=== PATIENT | female | born 1980 | race Caucasian/White ===

== ENCOUNTER 2017-04-11 06:29 | Emergency (ER) | payer SELFPAY ==
[~2017-04-11] VITALS: Wt 64.0 kg
[2017-04-11] MEDS ORDERED: ACETAMINOPHEN 500 MG TAB PO STA (06:50)
--- NOTE | 2017-04-11 06:53 | ERD ---
ER Documentation Chief Complaint Chief Complaint VAG BLEED X 2 DAYS 8 WEEKS PREG HPI This is a 36-year-old female who presents the emergency department today complaining of vaginal bleeding for the past 2 days. Patient states that couple of days ago she was spotting and went to [facility] yesterday and was told that the baby did not have a heartbeat. States that she is here today because she has had increased vaginal bleeding. She has some low back pain. States she has not taken any medication for the pain. Denies any dysuria , fevers or chills. ROS All systems reviewed and are negative except as per history of present illness. Medications Home Meds Active Scripts Acetaminophen* (Tylophen*) 500 Mg Capsule, 1 CAP PO Q6H Y for PAIN AND OR ELEVATED TEMP, #30 CAP Prov:JONEL MOSELEY PA-C 04/11/17 PMhx/Soc Medical and Surgical Hx: pt denies Medical Hx, pt denies Surgical Hx Hx Alcohol Use: No Hx Substance Use: No Hx Tobacco Use: No Physical Exam Vitals Vital Signs Date Time Temp Pulse Resp B/P Pulse Ox O2 Delivery O2 Flow Rate FiO2 04/11/17 06:33 98.0 78 18 158/86 99 Physical Exam Const: NAD Head: Atraumatic Eyes: Normal Conjunctiva ENT: Normal External Ears, Nose and Mouth. Neck: Full range of motion..~ No meningismus. Resp: Clear to auscultation bilaterally Cardio: Regular rate and rhythm, no murmurs Abd: Soft, diffuse pelvic tenderness non distended. Normal bowel sounds. No tenderness at McBurney's. Skin: No petechiae or rashes Back: No midline or flank tenderness Ext: No cyanosis, or edema Neur: Awake and alert Psych: Normal Mood and Affect Result Diagram: 04/11/17 0705 Results 24 hrs Laboratory Tests Test 04/11/17 07:05 04/11/17 07:18 White Blood Count 7.610^3/ul Red Blood Count 4.4910^6/ul Hemoglobin 14.0g/dl Hematocrit 41.7% Mean Corpuscular Volume 92.9fl Mean Corpuscular Hemoglobin 31.2pg Mean Corpuscular Hemoglobin Concent 33.6g/dl Red Cell Distribution Width 13.2% Platelet Count 79717^3/UL Mean Platelet Volume 9.4fl Neutrophils % 68.1% Lymphocytes % 23.4% Monocytes % 6.0% Eosinophils % 1.8% Basophils % 0.4% Nucleated Red Blood Cells % 0.0/100WBC Neutrophils # 5.210^3/ul Lymphocytes # 1.810^3/ul Monocytes # 0.510^3/ul Eosinophils # 0.110^3/ul Basophils # 0.010^3/ul Nucleated Red Blood Cells # 0.010^3/ul Beta HCG, Quantitative 61577.0mIU/ml Urine Color RED Urine Clarity CLEAR Urine pH 7.0 Urine Specific [place] 1.003 Urine Ketones NEGATIVEmg/dL Urine Nitrite NEGATIVEmg/dL Urine Bilirubin NEGATIVEmg/dL Urine Urobilinogen NEGATIVEmg/dL Urine Leukocyte Esterase NEGATIVELeu/ul Urine Microscopic RBC > 182/HPF Urine Microscopic WBC 8/HPF Urine Bacteria FEW/HPF Urine Hemoglobin 3+mg/dL Urine Glucose NEGATIVEmg/dL Urine Total Protein 2+mg/dl Current Medications Medications (Trade) Dose Ordered Sig/Melina Route PRN Reason Start Time Stop Time Status Last Admin Dose Admin Acetaminophen (Tylenol Tab) 500 mg ONCE STAT PO 04/11/17 06:50 04/11/17 06:52 DC 04/11/17 07:11 Methylergonovine Maleate (Methergine) 0.2 mg ONCE ONCE IM 04/11/17 10:30 04/11/17 10:31 DC DIAGNOSTIC IMAGING REPORT Patient: DERIC ALARCON : 1980 Age: 36 Sex: F MR #: [id number] DOS: 04/11/17 0650 Ordering MD: JONEL MOSELEY PA-C Location: E Room/Bed: PROCEDURE: US Pelvis CLINICAL INDICATION: Vaginal bleeding. TECHNIQUE: Transabdominal and transvaginal sonographic evaluation of the pelvis was performed. COMPARISON: None available. FINDINGS: Uterus is retroverted and normal in size and echotexture measuring 8.1 x 4.8 x 6.5 cm. There is no evidence of an intrauterine gestational sac. The endometrial canal complex is prominent and slightly heterogeneous at 23.4 mm in AP dimension. Ovaries appear normal bilaterally. The right ovary measures 1.9 x 1.1 x 1.2 cm. Left ovary measures 3.1 x 1.6 x 1.6 cm. There are no adnexal masses and there is a trace amount of free fluid in the cul-de-sac. IMPRESSION: 1. No evidence of an intrauterine gestation. An early IUP, missed AB or ectopic could have this appearance. Correlation with serial quantitative beta HCGs and possible follow-up ultrasound is suggested. RPTAT: AACC Simon Verduzco Physician Date Time Electronically viewed and signed by Simon Verduzco Physician on 04/11/2017 07: 36 JH/ CC: JONEL MOSELEY PA-C Procedures/MDM This is a 36-year-old female who presents to the emergency department today complaining of vaginal bleeding. Patient states she is approximately 10 weeks. Patient was seen yesterday at an outside hospital did not bring any paperwork with her. This is the patient's first visit to this emergency department. Given this I did obtain a complete OB workup. Laboratory work shows no elevated white blood cell count. She is not anemic. Platelets are within normal limits. UA negative for infection. Beta quant hCG 53488.0 Rh status O+ Ultrasound shows no evidence of intrauterine gestation. An early IUP, missed or ectopic could have this appearance. Ovaries appear normal bilaterally. There are no adnexal masses and there is a trace amount of free fluid in the cul-de-sac. Patient symptoms at this time is consistent with vaginal bleeding in early and likely complete . Given patient's beta quant and no evidence of IUP on ultrasound I did place a call to the patient's commercial loan administrator Dr. Magdaleno who wanted to know if the patient actually had an IUP. I did call the patient's clinic as patient had reported she dropped off paperwork with them and results of an ultrasound taken April 09, 2017 show a single intrauterine gestational sac with a pole and yolk sac and no heart motion. This indicated demise. Dr. Davis has recommended Methergine IM he will see her in clinic next week. Patient is afebrile and otherwise well-appearing. I have low suspicion for ectopic , tubo ovarian abscess, ovarian torsion. I have explained the results to the patient. Dr. Davis did indicate that he would follow-up with her next week in clinic. Explained to the patient she needs to call the clinic today to make an appointment for Friday. Patient is not anemic and her bleeding has slowed down significantly and did not feel the patient requires admission at this time. At this time the patient is stable for discharge and outpatient management. Patient should follow up with their PCP in the next 1-2 days. They may return to the emergency department sooner for any persistent or worsening of symptoms. Patient understood and agreed with the plan. Departure Diagnosis: Primary Impression: Vaginal bleeding in patient at less than 20 weeks gestation Condition: JONEL Bennett PA-C Apr 11, 2017 06:53
--- NOTE | 2017-04-11 06:53 | ERD ---
ER Documentation Chief Complaint Chief Complaint VAG BLEED X 2 DAYS 8 WEEKS PREG HPI This is a 36-year-old female who presents the emergency department today complaining of vaginal bleeding for the past 2 days. Patient states that couple of days ago she was spotting and went to [facility] yesterday and was told that the baby did not have a heartbeat. States that she is here today because she has had increased vaginal bleeding. She has some low back pain. States she has not taken any medication for the pain. Denies any dysuria , fevers or chills. ROS All systems reviewed and are negative except as per history of present illness. Medications Home Meds Active Scripts Acetaminophen* (Tylophen*) 500 Mg Capsule, 1 CAP PO Q6H Y for PAIN AND OR ELEVATED TEMP, #30 CAP Prov:JOENL MOSELEY PA-C 04/11/17 PMhx/Soc Medical and Surgical Hx: pt denies Medical Hx, pt denies Surgical Hx Hx Alcohol Use: No Hx Substance Use: No Hx Tobacco Use: No Physical Exam Vitals Vital Signs Date Time Temp Pulse Resp B/P Pulse Ox O2 Delivery O2 Flow Rate FiO2 04/11/17 06:33 98.0 78 18 158/86 99 Physical Exam Const: NAD Head: Atraumatic Eyes: Normal Conjunctiva ENT: Normal External Ears, Nose and Mouth. Neck: Full range of motion..~ No meningismus. Resp: Clear to auscultation bilaterally Cardio: Regular rate and rhythm, no murmurs Abd: Soft, diffuse pelvic tenderness non distended. Normal bowel sounds. No tenderness at McBurney's. Skin: No petechiae or rashes Back: No midline or flank tenderness Ext: No cyanosis, or edema Neur: Awake and alert Psych: Normal Mood and Affect Result Diagram: 04/11/17 0705 Results 24 hrs Laboratory Tests Test 04/11/17 07:05 04/11/17 07:18 White Blood Count 7.610^3/ul Red Blood Count 4.4910^6/ul Hemoglobin 14.0g/dl Hematocrit 41.7% Mean Corpuscular Volume 92.9fl Mean Corpuscular Hemoglobin 31.2pg Mean Corpuscular Hemoglobin Concent 33.6g/dl Red Cell Distribution Width 13.2% Platelet Count 77737^3/UL Mean Platelet Volume 9.4fl Neutrophils % 68.1% Lymphocytes % 23.4% Monocytes % 6.0% Eosinophils % 1.8% Basophils % 0.4% Nucleated Red Blood Cells % 0.0/100WBC Neutrophils # 5.210^3/ul Lymphocytes # 1.810^3/ul Monocytes # 0.510^3/ul Eosinophils # 0.110^3/ul Basophils # 0.010^3/ul Nucleated Red Blood Cells # 0.010^3/ul Beta HCG, Quantitative 69990.0mIU/ml Urine Color RED Urine Clarity CLEAR Urine pH 7.0 Urine Specific [place] 1.003 Urine Ketones NEGATIVEmg/dL Urine Nitrite NEGATIVEmg/dL Urine Bilirubin NEGATIVEmg/dL Urine Urobilinogen NEGATIVEmg/dL Urine Leukocyte Esterase NEGATIVELeu/ul Urine Microscopic RBC > 182/HPF Urine Microscopic WBC 8/HPF Urine Bacteria FEW/HPF Urine Hemoglobin 3+mg/dL Urine Glucose NEGATIVEmg/dL Urine Total Protein 2+mg/dl Current Medications Medications (Trade) Dose Ordered Sig/Melina Route PRN Reason Start Time Stop Time Status Last Admin Dose Admin Acetaminophen (Tylenol Tab) 500 mg ONCE STAT PO 04/11/17 06:50 04/11/17 06:52 DC 04/11/17 07:11 Methylergonovine Maleate (Methergine) 0.2 mg ONCE ONCE IM 04/11/17 10:30 04/11/17 10:31 DC DIAGNOSTIC IMAGING REPORT Patient: DERIC ALARCON : 1980 Age: 36 Sex: F MR #: [id number] DOS: 04/11/17 0650 Ordering MD: JONEL MOSELEY PA-C Location: E Room/Bed: PROCEDURE: US Pelvis CLINICAL INDICATION: Vaginal bleeding. TECHNIQUE: Transabdominal and transvaginal sonographic evaluation of the pelvis was performed. COMPARISON: None available. FINDINGS: Uterus is retroverted and normal in size and echotexture measuring 8.1 x 4.8 x 6.5 cm. There is no evidence of an intrauterine gestational sac. The endometrial canal complex is prominent and slightly heterogeneous at 23.4 mm in AP dimension. Ovaries appear normal bilaterally. The right ovary measures 1.9 x 1.1 x 1.2 cm. Left ovary measures 3.1 x 1.6 x 1.6 cm. There are no adnexal masses and there is a trace amount of free fluid in the cul-de-sac. IMPRESSION: 1. No evidence of an intrauterine gestation. An early IUP, missed AB or ectopic could have this appearance. Correlation with serial quantitative beta HCGs and possible follow-up ultrasound is suggested. RPTAT: AACC Simon Verduzco Physician Date Time Electronically viewed and signed by Simon Verduzco Physician on 04/11/2017 07: 36 JH/ CC: JONEL MOSELEY PA-C Procedures/MDM This is a 36-year-old female who presents to the emergency department today complaining of vaginal bleeding. Patient states she is approximately 10 weeks. Patient was seen yesterday at an outside hospital did not bring any paperwork with her. This is the patient's first visit to this emergency department. Given this I did obtain a complete OB workup. Laboratory work shows no elevated white blood cell count. She is not anemic. Platelets are within normal limits. UA negative for infection. Beta quant hCG 63049.0 Rh status O+ Ultrasound shows no evidence of intrauterine gestation. An early IUP, missed or ectopic could have this appearance. Ovaries appear normal bilaterally. There are no adnexal masses and there is a trace amount of free fluid in the cul-de-sac. Patient symptoms at this time is consistent with vaginal bleeding in early and likely complete . Given patient's beta quant and no evidence of IUP on ultrasound I did place a call to the patient's anchor tacker Dr. Magdaleno who wanted to know if the patient actually had an IUP. I did call the patient's clinic as patient had reported she dropped off paperwork with them and results of an ultrasound taken April 09, 2017 show a single intrauterine gestational sac with a pole and yolk sac and no heart motion. This indicated demise. Dr. Davis has recommended Methergine IM he will see her in clinic next week. Patient is afebrile and otherwise well-appearing. I have low suspicion for ectopic , tubo ovarian abscess, ovarian torsion. I have explained the results to the patient. Dr. Davis did indicate that he would follow-up with her next week in clinic. Explained to the patient she needs to call the clinic today to make an appointment for Friday. Patient is not anemic and her bleeding has slowed down significantly and did not feel the patient requires admission at this time. At this time the patient is stable for discharge and outpatient management. Patient should follow up with their PCP in the next 1-2 days. They may return to the emergency department sooner for any persistent or worsening of symptoms. Patient understood and agreed with the plan. Departure Diagnosis: Primary Impression: Vaginal bleeding in patient at less than 20 weeks gestation Condition: JONEL Bennett PA-C Apr 11, 2017 06:53
--- NOTE | 2017-04-11 06:53 | ERD ---
ER Documentation Chief Complaint Chief Complaint VAG BLEED X 2 DAYS 8 WEEKS PREG HPI This is a 36-year-old female who presents the emergency department today complaining of vaginal bleeding for the past 2 days. Patient states that couple of days ago she was spotting and went to [facility] yesterday and was told that the baby did not have a heartbeat. States that she is here today because she has had increased vaginal bleeding. She has some low back pain. States she has not taken any medication for the pain. Denies any dysuria , fevers or chills. ROS All systems reviewed and are negative except as per history of present illness. Medications Home Meds Active Scripts Acetaminophen* (Tylophen*) 500 Mg Capsule, 1 CAP PO Q6H Y for PAIN AND OR ELEVATED TEMP, #30 CAP Prov:JONEL MOSELEY PA-C 04/11/17 PMhx/Soc Medical and Surgical Hx: pt denies Medical Hx, pt denies Surgical Hx Hx Alcohol Use: No Hx Substance Use: No Hx Tobacco Use: No Physical Exam Vitals Vital Signs Date Time Temp Pulse Resp B/P Pulse Ox O2 Delivery O2 Flow Rate FiO2 04/11/17 06:33 98.0 78 18 158/86 99 Physical Exam Const: NAD Head: Atraumatic Eyes: Normal Conjunctiva ENT: Normal External Ears, Nose and Mouth. Neck: Full range of motion..~ No meningismus. Resp: Clear to auscultation bilaterally Cardio: Regular rate and rhythm, no murmurs Abd: Soft, diffuse pelvic tenderness non distended. Normal bowel sounds. No tenderness at McBurney's. Skin: No petechiae or rashes Back: No midline or flank tenderness Ext: No cyanosis, or edema Neur: Awake and alert Psych: Normal Mood and Affect Result Diagram: 04/11/17 0705 Results 24 hrs Laboratory Tests Test 04/11/17 07:05 04/11/17 07:18 White Blood Count 7.610^3/ul Red Blood Count 4.4910^6/ul Hemoglobin 14.0g/dl Hematocrit 41.7% Mean Corpuscular Volume 92.9fl Mean Corpuscular Hemoglobin 31.2pg Mean Corpuscular Hemoglobin Concent 33.6g/dl Red Cell Distribution Width 13.2% Platelet Count 70823^3/UL Mean Platelet Volume 9.4fl Neutrophils % 68.1% Lymphocytes % 23.4% Monocytes % 6.0% Eosinophils % 1.8% Basophils % 0.4% Nucleated Red Blood Cells % 0.0/100WBC Neutrophils # 5.210^3/ul Lymphocytes # 1.810^3/ul Monocytes # 0.510^3/ul Eosinophils # 0.110^3/ul Basophils # 0.010^3/ul Nucleated Red Blood Cells # 0.010^3/ul Beta HCG, Quantitative 58139.0mIU/ml Urine Color RED Urine Clarity CLEAR Urine pH 7.0 Urine Specific [place] 1.003 Urine Ketones NEGATIVEmg/dL Urine Nitrite NEGATIVEmg/dL Urine Bilirubin NEGATIVEmg/dL Urine Urobilinogen NEGATIVEmg/dL Urine Leukocyte Esterase NEGATIVELeu/ul Urine Microscopic RBC > 182/HPF Urine Microscopic WBC 8/HPF Urine Bacteria FEW/HPF Urine Hemoglobin 3+mg/dL Urine Glucose NEGATIVEmg/dL Urine Total Protein 2+mg/dl Current Medications Medications (Trade) Dose Ordered Sig/Melina Route PRN Reason Start Time Stop Time Status Last Admin Dose Admin Acetaminophen (Tylenol Tab) 500 mg ONCE STAT PO 04/11/17 06:50 04/11/17 06:52 DC 04/11/17 07:11 Methylergonovine Maleate (Methergine) 0.2 mg ONCE ONCE IM 04/11/17 10:30 04/11/17 10:31 DC DIAGNOSTIC IMAGING REPORT Patient: DERIC ALARCON : 1980 Age: 36 Sex: F MR #: [id number] DOS: 04/11/17 0650 Ordering MD: JONEL MOSELEY PA-C Location: E Room/Bed: PROCEDURE: US Pelvis CLINICAL INDICATION: Vaginal bleeding. TECHNIQUE: Transabdominal and transvaginal sonographic evaluation of the pelvis was performed. COMPARISON: None available. FINDINGS: Uterus is retroverted and normal in size and echotexture measuring 8.1 x 4.8 x 6.5 cm. There is no evidence of an intrauterine gestational sac. The endometrial canal complex is prominent and slightly heterogeneous at 23.4 mm in AP dimension. Ovaries appear normal bilaterally. The right ovary measures 1.9 x 1.1 x 1.2 cm. Left ovary measures 3.1 x 1.6 x 1.6 cm. There are no adnexal masses and there is a trace amount of free fluid in the cul-de-sac. IMPRESSION: 1. No evidence of an intrauterine gestation. An early IUP, missed AB or ectopic could have this appearance. Correlation with serial quantitative beta HCGs and possible follow-up ultrasound is suggested. RPTAT: AACC Simon Verduzco Physician Date Time Electronically viewed and signed by Simon Verduzco Physician on 04/11/2017 07: 36 JH/ CC: JONEL MOSELEY PA-C Procedures/MDM This is a 36-year-old female who presents to the emergency department today complaining of vaginal bleeding. Patient states she is approximately 10 weeks. Patient was seen yesterday at an outside hospital did not bring any paperwork with her. This is the patient's first visit to this emergency department. Given this I did obtain a complete OB workup. Laboratory work shows no elevated white blood cell count. She is not anemic. Platelets are within normal limits. UA negative for infection. Beta quant hCG 52495.0 Rh status O+ Ultrasound shows no evidence of intrauterine gestation. An early IUP, missed or ectopic could have this appearance. Ovaries appear normal bilaterally. There are no adnexal masses and there is a trace amount of free fluid in the cul-de-sac. Patient symptoms at this time is consistent with vaginal bleeding in early and likely complete . Given patient's beta quant and no evidence of IUP on ultrasound I did place a call to the patient's sheet rock layer Dr. Magdaleno who wanted to know if the patient actually had an IUP. I did call the patient's clinic as patient had reported she dropped off paperwork with them and results of an ultrasound taken April 09, 2017 show a single intrauterine gestational sac with a pole and yolk sac and no heart motion. This indicated demise. Dr. Davis has recommended Methergine IM he will see her in clinic next week. Patient is afebrile and otherwise well-appearing. I have low suspicion for ectopic , tubo ovarian abscess, ovarian torsion. I have explained the results to the patient. Dr. Davis did indicate that he would follow-up with her next week in clinic. Explained to the patient she needs to call the clinic today to make an appointment for Friday. Patient is not anemic and her bleeding has slowed down significantly and did not feel the patient requires admission at this time. At this time the patient is stable for discharge and outpatient management. Patient should follow up with their PCP in the next 1-2 days. They may return to the emergency department sooner for any persistent or worsening of symptoms. Patient understood and agreed with the plan. Departure Diagnosis: Primary Impression: Vaginal bleeding in patient at less than 20 weeks gestation Condition: JONEL Bennett PA-C Apr 11, 2017 06:53
--- NOTE | 2017-04-11 07:36 | RADRPT ---
PROCEDURE: US Pelvis CLINICAL INDICATION: Vaginal bleeding. TECHNIQUE: Transabdominal and transvaginal sonographic evaluation of the pelvis was performed. COMPARISON: None available. FINDINGS: Uterus is retroverted and normal in size and echotexture measuring 8.1 x 4.8 x 6.5 cm. There is no evidence of an intrauterine gestational sac. The endometrial canal complex is prominent and slightly heterogeneous at 23.4 mm in AP dimension. Ovaries appear normal bilaterally. The right ovary measur es 1.9 x 1.1 x 1.2 cm. Left ovary measures 3.1 x 1.6 x 1.6 cm. There are no adnexal masses and there is a trace amount of free fluid in the cul-de-sac. IMPRESSION: 1. No evidence of an intrauterine gestation. An early IUP, missed AB or ectopic could have this appe arance. Correlation with serial quantitative beta HCGs and possible follow-up ultrasound is manolo teran RPTAT: AACC Physician Maged Date Time Electronically viewed and signed by Physician Maged on 04/11/2017 07:36 /
[2017-04-11] MEDS ORDERED: METHYLERGONOVINE 0.2 MG INJ IM ONE (10:30)
[2017-04-11] MEDS ORDERED: ACET500C5 PO (10:33)
== END 2017-04-11 10:49 | disposition home or self-care (01) ==
LOC: FTE 06:29
DX: O20.9 Hemorrhage in early pregnancy, unspecified (principal); R10.2 Pelvic and perineal pain; Z3A.00 Weeks of gestation of pregnancy not specified
CPT/HCPCS: 36415; 76801; 76817; 81001; 84702; 85025; 86900; 86901; 96372; 99285; J2210

== ENCOUNTER 2018-06-05 10:40 | Emergency (ER) | payer MEDICAID ==
[~2018-06-05] VITALS: Ht 152.4 cm; Wt 88.0 kg
[~2018-06-05 10:40] MED LIST: ACET500C5 PO
[2018-06-05 10:43] VITALS: Ht 152.4 cm; Wt 88.0 kg
[2018-06-05] MEDS ORDERED: SOD CHLORIDE 0.9% 500 ML IV STA (10:55)
--- NOTE | 2018-06-05 11:00 | ERD ---
ER Documentation Chief Complaint Chief Complaint pt bib family sent by clinic for demis approx 17 wks HPI 37-year-old female at 16 weeks and 5 days EGA by LMP 01/11/18, presents to the emergency department, referred from [facility] for evaluation of demise. The patient denies abdominal pain, no vaginal bleeding, no urinary symptoms, no fever or chills. ROS All systems reviewed and are negative except as per history of present illness. Medications Home Meds Active Scripts Acetaminophen* (Tylenol*) 325 Mg Tablet, 2 TAB PO Q8 PRN for PAIN AND OR ELEVATED TEMP, #20 TAB Prov:KORTNEY CROWE MD 06/05/18 Discontinued Scripts Acetaminophen* (Tylophen*) 500 Mg Capsule, 1 CAP PO Q6H PRN for PAIN AND OR E LEVATED TEMP, #30 CAP Prov:JONEL MOSELEY PA-C 04/11/17 Allergies Allergies: Coded Allergies: No Known Allergy (Unverified , 06/05/18) PMhx/Soc Hx Alcohol Use: No Hx Substance Use: No Hx Tobacco Use: No Physical Exam Vitals Vital Signs Date Temp Pulse Resp B/P (MAP) Pulse Ox O2 O2 Flow FiO2 Time Delivery Rate 06/05/18 99.0 75 20 120/68 98 Room Air 13:31 (85) 06/05/18 98.6 89 18 134/81 92 10:43 (98) Physical Exam Patient alert, oriented, vital signs stable. HEENT: Normocephalic, atraumatic. EYES: PERRLA, EOMI, Sclera and conjunctiva appear normal. EARS: Canals clear, tympanic membranes WNL. THROAT: Normal oropharynx. NECK: Supple, No lymphadenopathy. Full ROM without pain or tenderness. HEART: RRR, no rubs, murmurs, clicks or gallops. LUNGS: Clear to auscultation. ABDOMEN: Soft, non-tender without masses or hepatosplenomegaly. : Normal external genitalia, cervix closed. No active bleeding. EXTREMITIES: No edema bilaterally. BACK: Full ROM, no deformity, normal back exam NEURO: Cranial nerves grossly intact, no motor or sensory deficit Result Diagram: 06/05/18 1056 06/05/18 1056 Results 24 hrs Laboratory Tests Test 06/05/18 10:56 06/05/18 11:04 White Blood Count 7.7 10^3/ul Red Blood Count 4.29 10^6/ul Hemoglobin 13.4 g/dl Hematocrit 38.9 % Mean Corpuscular Volume 90.7 fl Mean Corpuscular Hemoglobin 31.2 pg Mean Corpuscular Hemoglobin Concent 34.4 g/dl Red Cell Distribution Width 13.9 % Platelet Count 330 10^3/UL Mean Platelet Volume 9.3 fl Immature Granulocytes % 0.800 % Neutrophils % 67.8 % Lymphocytes % 23.8 % Monocytes % 6.2 % Eosinophils % 1.0 % Basophils % 0.4 % Nucleated Red Blood Cells % 0.0 /100WBC Immature Granulocytes # 0.060 10^3/ul Neutrophils # 5.2 10^3/ul Lymphocytes # 1.8 10^3/ul Monocytes # 0.5 10^3/ul Eosinophils # 0.1 10^3/ul Basophils # 0.0 10^3/ul Nucleated Red Blood Cells # 0.0 10^3/ul Sodium Level 134 mmol/L Potassium Level 4.3 mmol/L Chloride Level 104 mmol/L Carbon Dioxide Level 26 mmol/L Anion Gap 4 Blood Urea Nitrogen 9 mg/dl Creatinine 0.56 mg/dl Est Glomerular Filtrat Rate mL/min > 60 mL/min Glucose Level 104 mg/dl Calcium Level 10.1 mg/dl Urine Color YELLOW Urine Clarity CLEAR Urine pH 7.0 Urine Specific [place] 1.010 Urine Ketones NEGATIVE mg/dL Urine Nitrite NEGATIVE mg/dL Urine Bilirubin NEGATIVE mg/dL Urine Urobilinogen NEGATIVE mg/dL Urine Leukocyte Esterase NEGATIVE Claudy/ul Urine Microscopic RBC 2 /HPF Urine Microscopic WBC 2 /HPF Urine Squamous Epithelial Cells FEW /HPF Urine Bacteria FEW /HPF Urine Hemoglobin 1+ mg/dL Urine Glucose NEGATIVE mg/dL Urine Total Protein NEGATIVE mg/dl Current Medications Medications Dose Sig/Melina Start Time Status Last (Trade) Ordered Route PRN Stop Time Admin Dose Reason Admin Sodium 500 ml @ Q1H STAT 06/05/18 DC 06/05/18 Chloride 500 mls/hr IV 10:55 11:06 06/05/18 11:54 [place] [id number] Radiology Main Line: [phone] DIAGNOSTIC IMAGING REPORT Patient: DERIC ALARCON : 1980 Age: 37 Sex: F MR #: [id number] DOS: 06/05/18 1055 Ordering MD: KORTNEY CROWE MD Location: [facility] Room/Bed: PROCEDURE: US OB. CLINICAL INDICATION: demise TECHNIQUE: Transabdominal and endovaginal imaging of the gravid uterus is available for review COMPARISON: Ultrasound dated 06/04/2018, performed at [facility] FINDINGS: There is a single intrauterine with an estimated gestational age of 13 weeks 4 days by ultrasound criteria. No heart tones are detected. No subchorionic hemorrhage is identified. The ovaries are unremarkable. IMPRESSION: Single intrauterine with an estimated gestational age of 13 weeks 4 days by ultrasound criteria. No heart tones are detected. Findings are compatible with demise. RPTAT: HH .Inocencia Hicks MD, MD Date Time Electronically viewed and signed by .Inocencia Hicks MD, MD on 06/05/2018 12:25 .G/ CC: KORTNEY CROWE MD [phone] Procedures/MDM Vital signs stable, Physical exam unremarkable. Differential diagnosis include but not limited to: UTI, threatening , incomplete versus complete , ectopic , physiologic implantation bleeding, molar . Physical examination and clinical presentation most likely consistent with missed . During the ED course the patient remained hemodynamically stable and asymptomatic. Case discussed with Dr. Doherty, who reviewed the case and the ultrasound, at this time, she recommends conservative and expectant management with recommendations to follow up outpatient at her clinic for a referral to a 2nd-3rd termination clinic. Results and clinical impression discussed with patient who agrees with management. The patient is stable to be treated outpatient and will be discharged home with close monitoring and follow-up in 2 days with her primary physician. Bed rest and pelvic rest recommended until further medical evaluation. The patient was instructed regarding the outcomes and the potential complications like severe bleeding. If the patient presents severe bleeding or pain, she was instructed to return to the hospital immediately. Disclaimer: Inadvertent spelling and grammatical errors are likely due to EHR/dictation software use and do not reflect on the overall quality of patient care. Also, please note that the electronic time recorded on this note does not necessarily reflect the actual time of the patient encounter. Departure Diagnosis: Primary Impression: Missed with demise before 20 completed weeks of gestation Condition: Stable Additional Instructions: Muchas keena por [facility] para herrmann servicio. Esperamos que en herrmann visita a la debby de emergencia herrmann problema medico haya sido solucionado y que se sienta mucho mejor. Para estar seguros que herrmann mejoria sigue en proceso, le pedimos el favor de hacer jojo riki de seguimiento medico con herrmann doctor primario en los proximos 2-4 baltazar. Lleve con usted estos documentos y las medicinas recetadas. Si gabriel sintomas empeoran, NO SE ESPERE, por favor regrese a debby de emergencia INMEDIATAMENTE. JARRED-KORTNEY VIEIRA MD Jun 05, 2018 11:00
[2018-06-05] MEDS ORDERED: ACET325T33 PO (15:43)
[2018-06-05 15:55] VITALS: BP 101/58; PULSE 70; RESP 17
== END 2018-06-05 15:56 | disposition home or self-care (01) ==
LOC: FTE 10:40
DX: O02.1 Missed abortion (principal)
CPT/HCPCS: 76805; 80048; 81001; 85025; 86900; 86901; J7040; 36415; 96360